=== PATIENT | male | born 1970 | race Asian ===

== ENCOUNTER 2021-07-03 19:40 | Inpatient (IN) | payer BC, SELFPAY ==
[~2021-07-03] VITALS: Ht 167.6 cm; Wt 73.9 kg
[~2021-07-03 19:40] MED LIST: HYDR-914 PO
[2021-07-03 19:50] VITALS: BP_SYST 156
[2021-07-03] MEDS ORDERED: KETOROLAC TROMETHAMINE 30 MG VIAL IVP ONE ×2 (21:15)
[2021-07-03] MEDS ORDERED: ONDANSETRON HCL 4 MG/2 ML VIAL IVP ONE ×2 (21:15→22:45)
[2021-07-03] MEDS ORDERED: NACL 0.9% 1,000 ML IV ONE ×2 (21:15)
[2021-07-03 21:43] LABS: BASOPHILS # (AUTO) 0.1 K/uL (0.0-0.2); BASOPHILS % (AUTO) 0.6 % (0.0-2.0); EOSINOPHILS # (AUTO) 0.1 K/uL (0.0-0.4); EOSINOPHILS % (AUTO) 1.2 % (0.0-4.0); HEMATOCRIT 42.2 % (36-54); HEMOGLOBIN 14.3 g/dL (14.0-18.0); LYMPHOCYTES # (AUTO) 1.3 K/uL (1.0-5.5); LYMPHOCYTES % (AUTO) 14.3 % (20.5-51.5); MEAN CORPUSCULAR HEMOGLOBIN 29 pg (27-31); MEAN CORPUSCULAR HGB CONC 34 % (32-36); MEAN CORPUSCULAR VOLUME 86 fL (79.0-98.0); MONOCYTES # (AUTO) 0.6 K/uL (0.0-1.0); MONOCYTES % (AUTO) 6.5 % (1.7-9.3); NEUTROPHILS # (AUTO) 6.8 K/uL (1.8-7.7); NEUTROPHILS % (AUTO) 77.4 % (40.0-70.0); PLATELET COUNT (AUTO) 269 K/uL (130-430); RED BLOOD CELL COUNT(AUTO) 4.91 MIL/uL (4.2-6.2); RED CELL DISTRIBUTION WIDTH 13.4 % (9.0-15.0); WHITE BLOOD COUNT (AUTO) 8.7 K/uL (4.8-10.8)
[2021-07-03 22:07] LABS: CALCIUM 8.5 mg/dL (8.4-11.0); CREATININE 0.98 mg/dL (0.55-1.30); POTASSIUM 3.7 mmol/L (3.5-5.1)
[2021-07-03 22:13] LABS: ALBUMIN 3.6 g/dL (3.4-4.8)
[2021-07-03] MEDS ORDERED: HYDROmorphone 1 MG/ML INJ. CARTRIDGE IVP ONE (22:45)
[2021-07-04] MEDS ORDERED: ONDANSETRON HCL 4 MG/2 ML VIAL IVP ONE (00:30)
[2021-07-04 00:54] LABS: BILIRUBIN,URINE NEGATIVE (NEGATIVE); BLOOD, URINE 3+ (NEGATIVE); CLARITY/URINE CLEAR (CLEAR); COLOR,URINE YELLOW (YELLOW); GLUCOSE,URINE NEGATIVE (NEGATIVE); KETONES,URINE NEGATIVE (NEGATIVE); LEUKOCYTE ESTERASE ,URINE NEGATIVE (NEGATIVE); NITRITE, URINE NEGATIVE (NEGATIVE); PH,URINE 6.5 (5.0-8.0); PROTEIN URINE NEGATIVE (NEGATIVE); UROBILINOGEN,URINE 0.2 (0.2-1.0)
[2021-07-04] MEDS ORDERED: KETOROLAC TROMETHAMINE 30 MG VIAL IVP ONE (01:00)
[2021-07-04] MEDS ORDERED: NACL 0.9% 1,000 ML IV ONE (01:00)
[2021-07-04] MEDS ORDERED: ONDANSETRON HCL 4 MG/2 ML VIAL ONE (01:19)
[2021-07-04 01:20] LABS: BACTERIA,URINE RARE /HPF (None Seen); MUCUS,URINE None Seen /LPF (None Seen); RBC,URINE 20-50 /HPF (0-3)
[2021-07-04] MEDS ORDERED: HYDROmorphone 2 MG/ML VIAL IVP ONE (01:30)
[2021-07-04] MEDS ORDERED: DIPHENHYDRAMINE INJ 50 MG/ML VIAL IVP ONE (03:00)
[2021-07-04] MEDS ORDERED: MORPHINE 4 MG INJ. 4 MG/ML VIAL IVP ONE (03:00)
[2021-07-04] MEDS ORDERED: D5/0.45 NS 1,000 ML IV SCH (03:45)
[2021-07-04] MEDS ORDERED: ONDANSETRON HCL 4 MG/2 ML VIAL IVP PRN (06:45)
[2021-07-04] MEDS ORDERED: HYDR-3917 PO (08:27)
[2021-07-04] MEDS ORDERED: IBUP-1971 PO (08:27)
[2021-07-04 08:34] VITALS: BP_SYST 132
== END 2021-07-04 08:34 | disposition home or self-care (01) | DRG 694 ==
LOC: SED 19:40 → SMU 07-04 03:39
PROVIDERS: ADMIT Internal Medicine Hospice and Palliative Medicine; ATTEND Internal Medicine Hospice and Palliative Medicine
DX: N13.2 Hydronephrosis with renal and ureteral calculous obstruction (principal); Z20.822 Contact with and (suspected) exposure to COVID-19; Z88.8 Allergy status to other drugs, medicaments and biological substances; Z79.899 Other long term (current) drug therapy; Z90.49 Acquired absence of other specified parts of digestive tract
CPT/HCPCS: 36415; 76376; 80053; 81000; 85025; 96361; 96374; 96375; 96376; 99285; J1170; J1200; J1885; J2270; J2405

== ENCOUNTER 2021-07-04 13:20 | Inpatient (IN) | payer BC, SELFPAY ==
[~2021-07-04] VITALS: Ht 167.6 cm; Wt 72.6 kg
[~2021-07-04 13:20] MED LIST changes: +HYDR-3917 PO; +HYDROmorphone 2 MG/ML VIAL ONE; +IBUP-1971 PO
[2021-07-04 14:56] VITALS: BP_SYST 131
--- NOTE | 2021-07-04 14:56 | NUR ---
ER in triage examining patient.
--- NOTE | 2021-07-04 15:00 | NUR ---
PATIENT BROUGHT IN COMPLAINING OF RIGHT FLANK PAIN WAS DIAGNOSED WITH KIDNEY STONE LAST NIGHT WITH WORSENING PAIN 10/10. ALSO COMPLAINING OF NAUSEA. NO OTHER COMPLAINTS/INJURIES PER PATIENT OR NOTED. WILL CONTINUE TO MONITOR.
--- NOTE | 2021-07-04 15:05 | NUR ---
Dr. Rocha in triage discussing kidney stone
--- NOTE | 2021-07-04 15:06 | NUR ---
blood drawn from left hand.
[2021-07-04] MEDS ORDERED: METOCLOPRAMIDE HCL 10 MG TABLET PO ONE (15:15)
[2021-07-04] MEDS ORDERED: KETOROLAC TROMETHAMINE 60 MG/2 ML VIAL IM ONE (15:15)
[2021-07-04 15:16] LABS: BASOPHILS % (AUTO) 0.3 % (0.0-2.0); EOSINOPHILS # (AUTO) 0.1 K/uL (0.0-0.4); EOSINOPHILS % (AUTO) 0.6 % (0.0-4.0); HEMATOCRIT 43.1 % (36-54); HEMOGLOBIN 14.5 g/dL (14.0-18.0); LYMPHOCYTES # (AUTO) 0.9 K/uL (1.0-5.5); LYMPHOCYTES % (AUTO) 8.2 % (20.5-51.5); MEAN CORPUSCULAR HEMOGLOBIN 29 pg (27-31); MEAN CORPUSCULAR HGB CONC 34 % (32-36); MEAN CORPUSCULAR VOLUME 87 fL (79.0-98.0); MONOCYTES # (AUTO) 0.9 K/uL (0.0-1.0); MONOCYTES % (AUTO) 8.6 % (1.7-9.3); NEUTROPHILS # (AUTO) 8.8 K/uL (1.8-7.7); NEUTROPHILS % (AUTO) 82.3 % (40.0-70.0); PLATELET COUNT (AUTO) 239 K/uL (130-430); RED BLOOD CELL COUNT(AUTO) 4.98 MIL/uL (4.2-6.2); RED CELL DISTRIBUTION WIDTH 13.4 % (9.0-15.0); WHITE BLOOD COUNT (AUTO) 10.7 K/uL (4.8-10.8)
[2021-07-04 15:33] LABS: CALCIUM 8.2 mg/dL (8.4-11.0); CREATININE 1.2 mg/dL (0.55-1.30); POTASSIUM 3.8 mmol/L (3.5-5.1)
[2021-07-04 15:37] LABS: ALBUMIN 3.7 g/dL (3.4-4.8); TOTAL BILIRUBIN 1.5 mg/dL (0.0-1.0)
[2021-07-04 16:54] LABS: BILIRUBIN,URINE NEGATIVE (NEGATIVE); BLOOD, URINE 1+ (NEGATIVE); COLOR,URINE YELLOW (YELLOW); GLUCOSE,URINE NEGATIVE (NEGATIVE); KETONES,URINE TRACE (NEGATIVE); LEUKOCYTE ESTERASE ,URINE NEGATIVE (NEGATIVE); NITRITE, URINE NEGATIVE (NEGATIVE); PH,URINE 5.5 (5.0-8.0); PROTEIN URINE NEGATIVE (NEGATIVE); UROBILINOGEN,URINE 0.2 (0.2-1.0)
[2021-07-04 17:17] LABS: CLARITY/URINE SLIGHTLY HAZY (CLEAR)
[2021-07-04 17:22] LABS: BACTERIA,URINE RARE /HPF (None Seen); MUCUS,URINE None Seen /LPF (None Seen); WBC,URINE 0-3 /HPF (0-3)
[2021-07-04] MEDS ORDERED: OXYCODONE/ACETAMINOPHEN 5-325 TABLET PO ONE (18:30)
--- NOTE | 2021-07-04 21:51 | NUR ---
Patient to ER [id number] to [facility] for evaluation. Side rails up. Report given to Hasmukh MAX.
--- NOTE | 2021-07-04 22:43 | NUR ---
Patient will be admitted to care of DR. BYERS. Admitted to MED SURG unit. Will go to room TBD. Belongings list completed. Complete and up to date summary report printed. SBAR report to be given at bedside with opportunity for questions.
--- NOTE | 2021-07-04 22:51 | NUR ---
# 20 gauge angiocath placed to R FORE ARM. Use of asceptic technique. Opsite placed over site. Blood return noted. Flushed with 10 cc of normal saline. No evidence of infiltration noted. Patient tolerated well.
[2021-07-04] MEDS ORDERED: MORPHINE 4 MG INJ. 4 MG/ML VIAL IVP ONE (23:15)
[2021-07-04] MEDS ORDERED: NACL 0.9% 1,000 ML IV ONE (23:15)
[2021-07-04] MEDS ORDERED: DIPHENHYDRAMINE INJ 50 MG/ML VIAL IVP ONE (23:15)
--- NOTE | 2021-07-04 23:15 | NUR ---
Medicated w/ 4mg of morphine and 50mg of benadryl per MD orders. IVF infusing with no s/s of infiltration at this time. Will cont to monitor and observe for any adverse reaction. Bed to low position sr up, continue to monitor.
[2021-07-05] MEDS ORDERED: HYDROcodone/ACETAMIN 5-325 MG TAB (NORCO/ VICODIN) PO PRN (00:15)
[2021-07-05] MEDS ORDERED: ALBUTEROL SULFATE 0.083% 2.5 MG/3 ML VIAL.NEB INH PRN (00:15)
[2021-07-05] MEDS ORDERED: ACETAMINOPHEN 325 MG TABLET PO PRN (00:15)
[2021-07-05] MEDS ORDERED: NALOXONE HCL 0.4 MG/ML AMP (NARCAN) IVP PRN (00:15)
[2021-07-05] MEDS: NACL 0.9% 1,000 ML IV SCH ×3 (00:34→22:45)
[2021-07-05] MEDS: cefTRIAXone 1 GM IVPB PREMIX 50 ML IV SCH (00:34)
[2021-07-05] MEDS: MORPHINE 4 MG INJ. 4 MG/ML VIAL IVP PRN ×2 (00:35→08:48)
[2021-07-05 01:06] VITALS: BP_SYST 131
[2021-07-05] MEDS ORDERED: MORPHINE 4 MG INJ. 4 MG/ML VIAL IVP ONE (02:30)
--- NOTE | 2021-07-05 03:43 | NUR ---
PT SLEEPING IN BED. VSS
--- NOTE | 2021-07-05 06:20 | NUR ---
PT TOLERATING PAIN WELL. RESTING IN BED
--- NOTE | 2021-07-05 07:30 | NUR ---
Report received from Hasmukh MAX to assume care of patient
--- NOTE | 2021-07-05 07:35 | NUR ---
Patient easily arousable to voice. Alert and oriented to person, place and time. In NAD currently. Will continue to monitor closely.
--- NOTE | 2021-07-05 08:40 | NUR ---
Urology MD to bedside to consult/assess patient and inform of upcoming probable surgery time
--- NOTE | 2021-07-05 10:21 | NUR ---
Transporting patient to room [facility]
[2021-07-05 10:45] VITALS: BP_SYST 141
[2021-07-05] MEDS ORDERED: HYDROmorphone 1 MG/ML INJ. CARTRIDGE IVP PRN (12:15)
[2021-07-05] MEDS: HYDROmorphone 2 MG/ML VIAL IVP PRN ×2 (12:34→21:52)
[2021-07-05 17:36] VITALS: BP_SYST 140
--- NOTE | 2021-07-05 18:21 | NUR ---
Outcome Summary Received pt from ED for right flank pain. A/Ox4, VSS, afebrile. Pain managed with Dilaudid x2, norco x1 with effective relief. RA. Medsurg. Tolerating diet, intermittent nausea with increased pain. Voiding. Skin intact. Ambulates with steady gait. IVFs initiated, PIV dressing c/d/i. All needs met, safety and comfort measures maintained, call light within reach. NR, RN.
[2021-07-05 20:00] VITALS: BP_SYST 125
--- NOTE | 2021-07-05 22:00 | NUR ---
PT AWAKE,ALERT & ORIENTED X 4. NOT IN ANY ACUTE DISTRESS/SOB. RESP EVEN & UNLABORED. AFEBRILE. COMPLAINED OF 7/10 R FLANK PAIN, ADMINISTERED DILAUDID 2 MG IVP ORDERED, EFFECTIVE. RESIDENT W/ IVF RUNNING. PIV ON RFA INTACT & PATENT. PT IS B & B CONTINENT. HAS BRP. PROVIDED W/ URINAL. ADEQUATE OUTPUT, YELLOW CLEAR URINE, STRAINED, NO KIDNEY STONES FOUND. ENCOURAGED FLUIDS TOLERATED. WILL CON'T TO MONITOR.
[2021-07-06] VITALS: BP_SYST 128
[2021-07-06] MEDS: cefTRIAXone 1 GM IVPB PREMIX 50 ML IV SCH (00:50)
[2021-07-06 04:00] VITALS: BP_SYST 130; BP_SYST 147
[2021-07-06] MEDS: HYDROmorphone 2 MG/ML VIAL IVP PRN ×4 (04:15→22:07)
--- NOTE | 2021-07-06 06:50 | NUR ---
PT COMFORTABLY SLEEPING. NOT IN ANY ACUTE DISTRESS/SOB. DILAUDID 2MG IVP HAS BEEN EFFECTIVE W/ PAIN MGT DUE TO R FLANK PAIN 12/25.. PT USES URINAL, URINE STRAINED AND STILL NO SIGNS OF KIDNEY STONES. KEPT PT CLEAN AND COMFORTABLE. WILL ENDORSE TO DAYSHIFT RN.
[2021-07-06 08:00] VITALS: BP_SYST 144
[2021-07-06] MEDS: NACL 0.9% 1,000 ML IV SCH ×2 (11:10→22:03)
[2021-07-06 16:00] VITALS: BP_SYST 147
--- NOTE | 2021-07-06 18:23 | NUR ---
Outcome Summary Pt resting comfortably in bed. Medicated for right flank pain with Dilaudid with effective relief. C/o intermittent n/v, zofran ordered per MD. Plan for NPO tonight for procedure tomorrow. All needs met, safety and comfort measures maintained, call light within reach. NR, RN.
[2021-07-06] MEDS ORDERED: ONDANSETRON HCL 4 MG/2 ML VIAL IVP PRN (18:30)
[2021-07-06 20:00] VITALS: BP_SYST 147
--- NOTE | 2021-07-06 22:00 | NUR ---
PT COMFORTABLY SLEEPING. NOT IN ANY ACUTE DISTRESS/SOB. DILAUDID 2MG IVP HAS BEEN EFFECTIVE W/ PAIN MGT DUE TO R FLANK PAIN 12/25.. PT USES URINAL, URINE STRAINED AND STILL NO SIGNS OF KIDNEY STONES. KEPT PT CLEAN AND COMFORTABLE.IVF RUNNING @ 100ML/HR PIV ON RFA INTACT & PATENT.NEEDS ANTICIPATED. CALL LIGHT W/IN REACH.
[2021-07-07] VITALS: BP_SYST 144
[2021-07-07] MEDS: cefTRIAXone 1 GM IVPB PREMIX 50 ML IV SCH (00:35)
[2021-07-07] MEDS: NACL 0.9% 1,000 ML IV SCH (03:22)
[2021-07-07 04:00] VITALS: BP_SYST 142
[2021-07-07] MEDS: HYDROmorphone 2 MG/ML VIAL IVP PRN (04:55)
--- NOTE | 2021-07-07 06:45 | NUR ---
PT IS AWAKE,ALERT & ORIENTED X 4. PREPARED TO BE PICKED UP FOR SURGERY. PRE-OP CHECKLIST REVIEWED. URINE SAMPLE OBTAINED & MRSA SWAB DONE. CHG BATH RENDERED. VS STABLE. PT DENIES PAIN. LAST DILAUDID DOSE ADMINISTERED AROUND 5AM,EFFECTIVE. PT HAS BEEN NPO SINCE 2100 LAST NIGHT. NEEDS ANTICIPATED. REPORT GIVEN TO OR NURSES.
[2021-07-07 07:30] LABS: BASOPHILS % (AUTO) 0.4 % (0.0-2.0); CALCIUM 8.3 mg/dL (8.4-11.0); CREATININE 0.76 mg/dL (0.55-1.30); EOSINOPHILS # (AUTO) 0.1 K/uL (0.0-0.4); EOSINOPHILS % (AUTO) 1.3 % (0.0-4.0); HEMATOCRIT 42.8 % (36-54); HEMOGLOBIN 14.7 g/dL (14.0-18.0); LYMPHOCYTES # (AUTO) 1.2 K/uL (1.0-5.5); LYMPHOCYTES % (AUTO) 17.2 % (20.5-51.5); MEAN CORPUSCULAR HEMOGLOBIN 30 pg (27-31); MEAN CORPUSCULAR HGB CONC 34 % (32-36); MEAN CORPUSCULAR VOLUME 86 fL (79.0-98.0); MONOCYTES # (AUTO) 0.6 K/uL (0.0-1.0); MONOCYTES % (AUTO) 8.8 % (1.7-9.3); NEUTROPHILS # (AUTO) 5.2 K/uL (1.8-7.7); NEUTROPHILS % (AUTO) 72.3 % (40.0-70.0); PLATELET COUNT (AUTO) 242 K/uL (130-430); POTASSIUM 3.5 mmol/L (3.5-5.1); RED CELL DISTRIBUTION WIDTH 13.1 % (9.0-15.0); WHITE BLOOD COUNT (AUTO) 7.3 K/uL (4.8-10.8)
[2021-07-07 07:36] LABS: ALBUMIN 3.2 g/dL (3.4-4.8); TOTAL BILIRUBIN 1.2 mg/dL (0.0-1.0)
[2021-07-07 07:40] LABS: INR 0.9 (0.80-1.20); PROTHROMBIN TIME 10.1 SECS (9.5-12.5)
[2021-07-07] MEDS ORDERED: fentaNYL CITRATE 250 MCG/5 ML AMP IV ONE (07:40)
[2021-07-07] MEDS ORDERED: ONDANSETRON HCL 4 MG/2 ML VIAL IVP ONE (07:40)
[2021-07-07] MEDS ORDERED: SEVOFLURANE 15 MIN GAS INH ONE (07:40)
[2021-07-07] MEDS ORDERED: METOCLOPRAMIDE HCL 10 MG/2 ML VIAL IVP ONE (07:40)
[2021-07-07] MEDS ORDERED: PROPOFOL 200MG/ 20ML VIAL (DIPRIVAN) IV ONE (07:40)
[2021-07-07] MEDS ORDERED: LIDOCAINE 2%, 20 ML MDV INJ ONE (07:40)
[2021-07-07] MEDS ORDERED: GLYCOPYRROLATE 0.2 MG/ML VIAL IJ ONE (07:40)
[2021-07-07] MEDS ORDERED: NS IRRIG SOLN 1000 ML IR ONE (07:40)
[2021-07-07] MEDS ORDERED: NS 1000 ML IV.SOLN IV ONE (07:40)
[2021-07-07] MEDS ORDERED: MIDAZOLAM HCL 5 MG/5 ML VIAL IVP ONE (07:40)
[2021-07-07 08:09] LABS: BILIRUBIN,URINE NEGATIVE (NEGATIVE); BLOOD, URINE 2+ (NEGATIVE); CLARITY/URINE CLEAR (CLEAR); COLOR,URINE YELLOW (YELLOW); GLUCOSE,URINE NEGATIVE (NEGATIVE); KETONES,URINE 2+ (NEGATIVE); LEUKOCYTE ESTERASE ,URINE NEGATIVE (NEGATIVE); NITRITE, URINE NEGATIVE (NEGATIVE); PROTEIN URINE NEGATIVE (NEGATIVE); UROBILINOGEN,URINE 0.2 (0.2-1.0)
[2021-07-07] MEDS ORDERED: KETOROLAC TROMETHAMINE 30 MG VIAL IVP PRN (08:30)
[2021-07-07] MEDS ORDERED: NACL 0.9% 1,000 ML IV SCH (08:30)
[2021-07-07] MEDS ORDERED: ONDANSETRON HCL 4 MG/2 ML VIAL IVP PRN (08:30)
[2021-07-07 08:50] LABS: BACTERIA,URINE None Seen /HPF (None Seen); WBC,URINE 0-3 /HPF (0-3)
[2021-07-07 09:30] VITALS: BP_SYST 136
[2021-07-07 10:17] VITALS: BP_SYST 136
--- NOTE | 2021-07-07 10:35 | NUR ---
Discharge Summary Pt returned stable from PACU s/p cystoscopy. VSS. Afebrile. Denies pain or discomfort. Able to void without pain or difficulty, ambulating room with steady gait. Discharge instructions explained, pt verbalized understanding. IV removed, belongings returned. NR, RN
== END 2021-07-07 10:35 | disposition home or self-care (01) | DRG 661 ==
LOC: SED 13:20 → SMU 22:42
PROVIDERS: ADMIT Internal Medicine Hospice and Palliative Medicine; ATTEND Internal Medicine Hospice and Palliative Medicine
PROC: BT1D1ZZ Fluoroscopy of Right Kidney, Ureter and Bladder using Low Osmolar Contrast (ICD-10-PCS; 2021-07-07)
PROC: 0T768DZ Dilation of Right Ureter with Intraluminal Device, Via Natural or Artificial Opening Endoscopic (ICD-10-PCS; principal; 2021-07-07 07:00)
DX: N13.2 Hydronephrosis with renal and ureteral calculous obstruction (principal); Z88.8 Allergy status to other drugs, medicaments and biological substances; Z79.899 Other long term (current) drug therapy; Z90.49 Acquired absence of other specified parts of digestive tract
CPT/HCPCS: 36415; 71045; 76000; 80053; 81000; 85025; 85610-TC; 85730-TC; 86886; 86900; 86901; 87081; 93005; 96361; 96372; 96374; 96375; 99285; C1769; C2625; J0696; J1170; J1200; J1885; J2001; J2250; J2270; J2405; J2704; J2765; J3010; J3490; J7030; J8597; Q9967